=== PATIENT | male | born 1995 | race Caucasian/White ===

== ENCOUNTER 2018-03-12 09:23 | Emergency (ER) | payer OTHER ==
[2018-03-12] MEDS ORDERED: Cephalexin 500 MG Cap PO ONE (12:19)
[2018-03-12] MEDS ORDERED: Bacitracin Oint 1 GM U/D Packet TOP ONE (12:19)
--- NOTE | 2018-03-12 12:34 | EDM.PDOC ---
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 Denies any other injury. Due to the pain, swelling and discoloration he saw the field medic today who referred him to the emergency room. Onset Date: 03/08/18 Duration: Getting Worse Location: Reports: Lower Extremity, Left Quality: Reports: Ache Severity: Severe Improves with: Reports: None Worsens with: Reports: None Associated Symptoms: Reports: No Other Symptoms - Related Data Allergies Allergy/AdvReac Type Severity Reaction Status Date / Time No Known Allergies Allergy Verified 03/12/18 10:17 Home Meds: Home Meds . [No Known Home Meds] 03/12/18 [History] Review of Systems - Review of Systems Review Of Systems: ROS reveals no pertinent complaints other than HPI. ED EXAM, GENERAL - Physical Exam Exam: See Below Exam Limited By: No Limitations General Appearance: Alert, WD/WN, No Apparent Distress Head: Atraumatic, Normocephalic Respiratory/Chest: No Respiratory Distress Cardiovascular: Normal Peripheral Pulses Extremities: Normal Range of Motion, Normal Capillary Refill, Redness (left 1st toe), Other (subungual hematoma left 1st toe, w/adj. soft tissue swelling and bruising). No: Joint Swelling Neurological: Alert, Oriented, No Motor/Sensory Deficits Psychiatric: Normal Mood Course - Vital Signs Last Recorded V/S: Last Vital Signs Temp 36.6 C 03/12/18 10:13 Pulse 56 L 03/12/18 10:13 Resp 18 03/12/18 10:13 BP 133/82 03/12/18 10:13 Pulse Ox 100 03/12/18 10:13 - Orders/Labs/Meds Meds: Medications Discontinued Medications Generic Name Dose Route Start Last Admin Trade Name Freq PRN Reason Stop Dose Admin Bacitracin 1 dose 03/12/18 12:19 03/12/18 12:32 Bacitracin Oint 1 Gm TOP 03/12/18 12:20 1 dose ONETIME ONE Administration Cephalexin 500 mg 03/12/18 12:19 03/12/18 12:32 Keflex PO 03/12/18 12:20 500 mg ONETIME ONE Administration - Radiology Interpretation Free Text/Narrative:: X-ray left foot: No acute fracture. See rad report. Departure - Departure Time of Disposition: 12:24 Disposition: Home, Self-Care 01 Condition: Good Clinical Impression: Cellulitis of toe of left foot Subungual hematoma of great toe of left foot Qualifiers: Encounter type: initial encounter Qualified Code(s): S90.212A - Contusion of left great toe with damage to nail, initial encounter - Discharge Information Instructions: Subungual Hematoma, [id number], Cellulitis, Adult, [id number] Forms: ED Department Discharge Additional Instructions: RX: Bactroban2%. RX: Cephalexin 500mg. Have toe rechecked in clinic in 5 to 7 days. I have read and agree with the documentation that has been completed regarding this visit. By signing this record, I attest that the documentation was completed in my physical presence and is an accurate record of the encounter.
== END 2018-03-12 12:43 | disposition home or self-care (01) ==
LOC: DL.ED 09:23
DX: S90.212A Contusion of left great toe with damage to nail, initial encounter (principal); L03.012 Cellulitis of left finger; W20.8XXA Other cause of strike by thrown, projected or falling object, initial encounter
CPT/HCPCS: 73660; 99283; 99284; A9270